=== PATIENT | female | born 1960 | race Caucasian/White ===

== ENCOUNTER 2025-09-18 14:14 | Outpatient (AMB) | payer OTHER, SELFPAY ==
--- OUTSIDE RECORDS SUMMARY | 2025-05-10 06:45 | XMS_ITS ---
Author Organization Rosangela Dowell Address [address] [place] [address] Care Team Providers Care Coal Miner Name Role Phone David Adames Primary Care Provider [phone] David Adames Unavailable Unavailable ALLERGIES No Known Allergies REASON FOR VISIT (IN OFFICE), New Patient MEDICATIONS Medication SIG (Take, Route, Frequency, Duration) Notes Start Date End Date Status Coumadin (1 MG) 1 MG 1 tablet Orally Onc e a day Active Spironolactone 50 MG as directed Orally Active Jardiance 10 MG 1 tablet Orally Once a day Active Carvedilol 3.125 MG 1 tablet with food O rally Twice a day Active Folic Acid 1 MG 1 tablet Orally Once a day for 30 day(s) Active Entresto 24-26 MG 1 tablet Orally Twic e a day Active Atorvastatin Calcium 80 MG 1 tablet Oral ly Once a day Active Aspirin 81 MG 1 tablet Orally Once a day Active SOCIAL HISTORY Tobacco Use: Social History Observation Description Date Details (start date - stop date) Former Smoker NA - 03/27/2025 Sex Assigned At : Social History Observation Description Sex Assigned At Unknown Tobacco Use/Smoking Question Answer Notes Are you a former smoker When did you stop smoking? 03/27/2025 How long has it been since you last smoked? 1-3 months PROBLEMS Problem Type ICD Code Onset Dates Problem Status W/U Status Risk SNOMED Code Notes Problem Mixed hyperlipidemia (E78.2) Active confirmed 570394479 Problem Status post mitral valve replacement (Z95.2) Active confirmed 3562652659381 Problem Congestive heart failure, unspecified (I50.9) Active confirmed 71896445 Problem Paroxysmal a-fib (I48.0) Active confirmed 497164901 Problem COPD, moderate (J44.9) Active confirmed 736732678 VITAL SIGNS Blood pressure systolic 100 mm Hg 05/10/20 25 Blood pressure diastolic 60 mm Hg 025 Heart Rate 60 /min 05/10/2025 Height 65 in 05/10/2025 Weight 175.6 lbs 05/10/2025 BMI 29.22 kg/m2 05/10/2025 Encounters Encounter Location Date Provider Diagnosis Ros[facility] Dowell, [address] [place] [address] 05/10/2025 David Adames Mixed hyperlipidemia E78.2 ; Status post mitral valve replacement Z95.2 ; S/P CABG (coronary artery bypass graft) Z95.1 ; Congestive heart failure, unspecified I50.9 ; LV (acute kidney injury) N17.9 ; Paroxysmal a-fib I48.0 ; COPD, moderate J44.9 ; Encounter for medical examination to establish care Z00.00 and Encounter to establish care Z76.89 ASSESSMENTS Encounter Date Diagnosis Assessment Notes Treatment Notes Treatment Clinical Notes Section Notes 05/10/2025 Mixed hyperlipidemia (ICD-10 - E78.2) 05/10/2025 Status post mitral valve replacement (ICD-10 - Z95.2) 05/10/2025 S/P CABG (coronary artery bypass graft) (ICD-10 - Z95.1) 05/10/2025 Congestive heart failure, unspecified (ICD-10 - I50.9) 05/10/2025 LV (acute kidney injury) (ICD-10 - N17.9) 05/10/2025 Paroxysmal a-fib (ICD-10 - I48.0) 05/10/2025 COPD, moderate (ICD-10 - J44.9) 05/10/2025 Encounter for medical examination to establish care (ICD-10 - Z00.00) 05/10/2025 Encounter to establish care (ICD-10 - Z76.89) 05/10/2025 Other This chart has been transcribed by a computerized dictation system. There are likely to be multiple help desk coordinator inaccuracies despite chart review. PLAN OF TREATMENT Medication Medication Name Sig Start Date Stop Date Notes Coumadin (1 MG) 1 MG 1 tablet Orally Once a day Spironolactone 50 MG as directed Orally Jardiance 10 MG 1 tablet Orally Once a day Carvedilol 3.125 MG 1 tablet with food O rally Twice a day Entresto 24-26 MG 1 tablet Orally Twice a day Atorvastatin Calcium 80 MG 1 tablet Orally Once a day Aspirin 81 MG 1 tablet Orally Once a day Treatment Notes Assessment Notes Other This chart has been transcribed by a computerized dictation system. There are likely to be multiple help desk coordinator inaccuracies despite chart review. Next Appt Details Follow Up: 4 Weeks, Reason: Follow up with Fany Provider Name:Fany Caro i, 10/02/2025 02:45:00 PM, [address] [place] [address], [phone], Progress Notes * Examination Category Sub-Category Detail Notes Category Not es General Examination GENERAL APPEARANCE: in no ac priscilla distress, well developed, well nourished HEAD: normocephalic, atrau matic EYES: pupils equal, round, reactive to light and accommodation THROAT: clear, no erythema, uvula midline, no exudate NECK/THYROID: neck supple, no thyr omegaly, trachea midline, no carotid bruit HEART: no murmurs, regular rate and rhythm, S1, S2 normal LUNGS: clear to auscultatio n bilaterally ABDOMEN: soft, nontender, non distended, no organomegaly , bowel sounds present NEUROLOGIC: alert and oriented x 3, nonfocal SKIN: no suspicious lesion s, warm and dry EXTREMITIES: no clubbing, cyanosi s, or edema PERIPHERAL PULSES: normal, 2+ throughou t MUSCULOSKELETAL: normal, full range o f motion LYMPH NODES: no cervical, axillar y, supraclavicular or inguinal adenopathy PSYCH: cognitive function i ntact, mood/affect full range ORAL CAVITY: mucosa moist, no les ions, palate normal, tongue in midline, well papillated History and Physical Notes * HPI (History of Present Illness) Category Sub-Category Detail Notes Category Not es Symptom(s) 64 year old fem eleazar with a past medical history of mixed hyperlipidemia, coronary artery disease s/p bypass graft x1, heart failure, COPD, mitral reguritation s/p mitral valve replacement, paroxysmal A-fib and former smoker that is here with her to establish care. She recently had open heart surgery and I reviewed her discharge paperwork and current medications. She has her INR checked at the Coumadin clinic currently for dosing of her Warfarin. She tells me that she has upcoming follow ups with cardiology and renal. I have asked her to have them send us copies of their notes. I reviewed her surgical and medical history with her. Her blood pressure is well controlled and she tells me that they monitor it at home. She denies chest pain, palpitations and shortness of breath. I will have her schedule a follow up appointment with us in a month.
--- OUTSIDE RECORDS SUMMARY | 2025-05-20 05:48 | XMS_ITS ---
Author Organization Rosangela Delmer Address [address] [place] [address] Care Team Providers Care Senior Credit Analyst Name Role Phone David Adames Primary Care Provider [phone] David Adames Unavailable Unavailable REASON FOR VISIT Refills and Letter MEDICATIONS Medication SIG (Take, Route, Fr equency, Duration) Notes Start Date End Date Status Folic Acid 1 MG 1 tablet Orally Once a day for 30 day(s) Active Thiamine HCl 100 MG 1 tablet Orally Once a day for 30 day(s) 05/20/2025 Active Encounters Encounter Location Date Provider Diagnosis jorge abutch Delmer [address] [place] [address] 05/20/20 David Adames PLAN OF TREATMENT Medication Medication Name Sig Start Date Stop Date Notes Folic Acid 1 MG 1 tablet Orally Once a day for 30 day(s) Thiamine HCl 100 MG 1 tablet Orally Once a day for 30 day(s) 05/20/2025 Next Appt Details Provider Name:Fany Caro i, 10/02/2025 02:45:00 PM, [address] [place] [address], [phone],
--- OUTSIDE RECORDS SUMMARY | 2025-06-06 06:45 | XMS_ITS ---
Author Organization Rosangela Dowell Address [address] [place] [address] Care Team Providers Care Service Center Specialist Name Role Phone David Adames Primary Care Provider [phone] David Adames Unavailable Unavailable REASON FOR REFERRAL Reason Consultation Diagnosis 1 Rectocele, female (N 81.6) Referral Organization David Adames [facility] Referring Provider First Name David Referring Provider Last Name Rosangela Referring Provider Speciality Internal M edicine Referred Provider Specialty Gynecology ( Osteopaths only) General Notes Jojo Jules 08/2025 02:14:54 PM EDT > Faxed to General surgery, which has colorectal sugery as [facility], Jojo Jules 06/07/2025 08:30:17 AM EDT > PT is scheduled with Kierra Ramirez on 06/20, Korin Goetz 06/11/2025 11:12:02 AM EDT > They don't take her inurance. She needs to go somewhere else. Dhara Kalise 06/11/2025 11:25:54 AM EDT > Faxed to [facility] referral line , Jojo Jules 06/20/2025 10:53:03 AM EDT > Went to the wrong department needed to refax the referral.Dhara Kalise 06/20/2025 01:46:01 PM EDT > [facility] doesn't have a colorectal surgeon going to call [facility] and see if they are accepting new pts. [facility] doesn't see for this either. Dhara Kalise 06/20/2025 01:52:51 PM EDT > Left VM for [facility] to see if there is anyway to get them in and if they take the plan. Dhara Kalise 06/21/2025 09:41:53 AM EDT > [facility] is accepting new pts and i faxed over the referral., BrindaMerlene lackey 06/24/2025 02:17:43 PM EDT > [facility] don't treat for that dx , Jojo Jules 06/28/2025 11:15:30 AM EDT > Is there another Dx we could use? Everywhere rene looked either doesnt take this Dx or her insurance , Jennifer Mullen 06/28/2025 11:19:33 AM EDT > Try sending her to a urogynecologist see if they accept the DX , Jojo Jules 06/28/2025 03:28:48 PM EDT > the only place that would take her insurance is [facility] in [place]. Called pt to let her know she is going to think about it and let us know tuesday. , Jojo Jules 07/03/2025 08:31:12 AM EDT > No [facility] takes this Dx code. , Jennifer Mullen 07/03/2025 08:47:50 AM EDT > please get patient in with regular Gynecology first at [facility] and they can take it from there. , Jojo Jules 07/03/2025 08:50:15 AM EDT > Faxed to [facility] , Jojo Jules 07/03/2025 10:45:08 AM EDT > [facility] is not taking on new pts at the moment , Jojo Jules 07/05/2025 03:22:30 PM EDT > On tuesday let her know if she really wants this taken care of she is going to have to travel to the [place]. or in the new year join a plan that is more accepted and then we can try again. , Jojo Jules 07/09/2025 04:23:13 PM EDT > PT is not willing to travel and will try again next year. Clinical Notes [facility] - Juliano huston , PH: [phone], F: [phone] Referral Priority Urgent REASON FOR VISIT (IN OFFICE), Follow Up, Sick visit- hemorrhoids MEDICATIONS Medication SIG (Take, Route, Frequency, Duration) Notes Start Date End Date Status Hydrocortisone Acetate 25 MG 1 supposito ry Rectal Twice a day for 30 day(s) 06/06/2025 Active Aspirin 81 MG 1 tablet Orally Once a day Active Atorvastatin Calcium 80 MG 1 tablet Oral ly Once a day Active Entresto 24-26 MG 1 tablet Orally Twic e a day Active Carvedilol 3.125 MG 1 tablet with food Orally Twice a day Active Folic Acid 1 MG TAKE 1 TABLET BY CHIN TH EVERY DAY FOR 30 DAYS for 90 Active B-1 100 MG TAKE 1 TABLET BY CHIN TH EVERY DAY FOR 30 DAYS for 90 Active Spironolactone 25 MG 1 tablet Orally Active Metoprolol Succinate ER 25 MG TAKE 1 TABLET BY MOUTH EVERY DAY Oral for 90 Active Jardiance 10 MG 1 tablet Orally Once a day Active Coumadin (1 MG) 1 MG 1 tablet Orally Onc e a day Active SOCIAL HISTORY Tobacco Use: [...] W/U Status Risk SNOMED Code Notes Problem Grade I hemorrhoids (K64.0) Active confirmed 279223754 Problem Rectocele, female (N81.6) Active confirmed 752609820 VITAL SIGNS Blood pressure systolic 116 mm Hg 06/06/20 25 Blood pressure diastolic 78 mm Hg 025 Heart Rate 84 /min 06/06/2025 Height 65 in 06/06/2025 Weight 176.4 lbs 06/06/2025 BMI 29.35 kg/m2 06/06/2025 PROCEDURES Procedure Date Ordered Date Performed Result Body Sit e DIAGNOSTIC ANOSCOPY 06/06/2025 N/A Encounters Encounter Location Date Provider Diagnosis [facility] [address] [place] [phone] 06/06/2025 David Adames Status post mitral v alve replacement Z95.2 ; Congestive heart failure, unspecified I50.9 ; Paroxysmal a-fib I48.0 ; Mixed hyperlipidemia E78.2 ; S/P CABG (coronary artery bypass graft) Z95.1 ; LV (acute kidney injury) N17.9 ; COPD, moderate J44.9 ; Grade I hemorrhoids K64.0 and Rectocele, female N81.6 ASSESSMENTS Encounter Date Diagnosis Assessment Notes Treatment Notes Treatment Clinical Notes Section Notes 06/06/2025 Status post mitral valve replacement (ICD-10 - Z95.2) 06/06/2025 Congestive heart failure, unspecified (ICD-10 - I50.9) 06/06/2025 Paroxysmal a-fib (ICD-10 - I48.0) 06/06/2025 Mixed hyperlipidemia (ICD-10 - E78.2) 06/06/2025 S/P CABG (coronary artery bypass graft) (ICD-10 - Z95.1) 06/06/2025 VL (acute kidney injury) (ICD-10 - N17.9) 06/06/2025 COPD, moderate (ICD-10 - J44.9) 06/06/2025 Grade I hemorrhoids (ICD-10 - K64.0) 06/06/2025 Rectocele, female (ICD-10 - N81.6) 06/06/2025 Other This chart has been transcribed by a computerized dictation system. There are likely to be multiple transportation mechanic inaccuracies despite chart review. PLAN OF TREATMENT Medication Medication Name Sig Start Date Stop Date Notes Hydrocortisone Acetate 25 MG 1 supposito ry Rectal Twice a day for 30 day(s) 06/06/2025 Aspirin 81 MG 1 tablet Orally Once a day Atorvastatin Calcium 80 MG 1 tablet Orally Once a day Entresto 24-26 MG 1 tablet Orally Twice a day Carvedilol 3.125 MG 1 tablet with food O rally Twice a day Spironolactone 25 MG 1 tablet Orally Jardiance 10 MG 1 tablet Orally Once a day Coumadin (1 MG) 1 MG 1 tablet Orally Once a day Treatment Notes Assessment Notes Other This chart has been transcribed by a computerized dictation system. There are likely to be multiple transportation mechanic inaccuracies despite chart review. Pending Test Test Name Order Date GUAIAC, SINGLE SPECIMEN 06/06/2025 DIAGNOSTIC ANOSCOPY 06/06/2025 Referrals Referral Date Details Consultation Next Appt Details Follow Up: 4 Weeks, Reason: Annual physical with Fany Provider Name:Fany Caro i, 10/02/2025 02:45:00 PM, [address] [place] [address], [phone], Progress Notes * Examination Category Sub-Category Detail Notes Category Not es General Examination GENERAL APPEARANCE: in no ac te-moak distress, well developed, well nourished HEAD: normocephalic, [...] cervical, axillar y, supraclavicular or inguinal adenopathy RECTAL EXAM: Grade 1 hemorrhoids present, no fissures PSYCH: cognitive function i ntact, mood/affect full range FEMALE GENITOURINARY: Rectocele present ORAL CAVITY: mucosa moist, no les ions, [...] A-fib and former smoker that is here for follow up, accompanied by her . Since last visit patient has seen her slat pickler who stopped her carvedilol and started her on metoprolol XL 25 mg daily due to tachycardia. She will follow up again with them in July I reviewed all available consultation notes. Patient also continues to follow up with nephrology for an LV after CABG. Patient had lab work drawn this week but unfortunately I do not have record of this. Our office will try to obtain these records. Patient's blood pressure is well controlled with current medications. She continues to take atorvastatin without any adverse reaction. She denies chest pain, palpitations, or shortness of breath. Patient complains of hemorrhoids for 7 years. She tells me that her rectum protrudes from her vagina. An anoscopy was performed which revealed grade 1 hemorrhoids and patient was found to have a rectocele. She tells me that protrudes if she is standing for more than 5 minutes. I will start patient on hydrocortisone suppositories twice a day and refer her to colorectal surgery. I advised patient to drink plenty of fluids to prevent constipation. Consultation Request Notes Referral Date Referring Provider Referred Provider Not 06/06/2025 David Adames , Consultation
--- OUTSIDE RECORDS SUMMARY | 2025-06-06 08:31 | XMS_ITS ---
Author Organization Emilybutch Delmer Address [address] [place] [address] Care Team Providers Care Manager Appointment Name Role Phone David Adames Primary Care Provider [phone] David Adames Unavailable Unavailable Liberty [facility] [phone] REASON FOR VISIT Labs Encounters Encounter Location Date Provider Diagnosis [facility] Delmer [address] [place] [address] 06/06/20 25 Liberty Barksdale PLAN OF TREATMENT Next Appt Details Provider Name:Fany Caro i, 10/02/2025 02:45:00 PM, [address] [place] [address], [phone],
--- OUTSIDE RECORDS SUMMARY | 2025-06-07 11:03 | XMS_ITS ---
Author Organization Rosangela Dowell Address [address] [place] [address] Care Team Providers Care Design Eng Name Role Phone David Adames Primary Care Provider David Adames Unavailable Unavailable REASON FOR VISIT Alternative Encounters Encounter Location Date Provider Diagnosis Rosangela Dowell [address] [place] [address] 06/07/20 David Adames PLAN OF TREATMENT Next Appt Details Provider Name:Fany Caro i, 10/02/2025 02:45:00 PM, [address] [place] [address], [phone],
--- OUTSIDE RECORDS SUMMARY | 2025-06-11 07:10 | XMS_ITS ---
Author Organization Rosangela Dowell Address [address] [place] [address] Care Team Providers Care Padding Machine Operator Name Role Phone David Adames Primary Care Provider David Adames Unavailable Unavailable REASON FOR VISIT Message MEDICATIONS Medication SIG (Take, Route, Frequency, Duration) Notes Start Date End Date Status Hydrocortisone (Perianal) 2.5 % 1 application Externally Twice a day for 30 days 06/11/2025 Active Encounters Encounter Location Date Provider Diagnosis jorge [address] [address] 06/11/20 David Adames PLAN OF TREATMENT Medication Medication Name Sig Start Date Stop Date Notes Hydrocortisone (Perianal) 2.5 % 1 applic ation Externally Twice a day for 30 days 06/11/2025 Next Appt Details Provider Name:Fany Caro i, 10/02/2025 02:45:00 PM, [address] [place] [address], [phone],
--- OUTSIDE RECORDS SUMMARY | 2025-07-02 10:30 | XMS_ITS ---
Author Organization Rosangela Dowell Address [address] [place] [address] Care Team Providers Care Real Estate Acquisition Analyst Name Role Phone David Adames Primary Care Provider [phone] David Adames Unavailable Unavailable REASON FOR VISIT (IN OFFICE), Annual Complete Physical Exam MEDICATIONS Medication SIG (Take, Route, Frequency, Duration) Notes Start Date End Date Status Spironolactone 25 MG 1/2 tablet Orally O nce a day Active Metoprolol Succinate ER 25 MG TAKE 1 TABLET BY MOUTH EVERY DAY Oral for 90 Active Hydrocortisone (Perianal) 2.5 % 1 application Externally Twice a day for 30 days 06/11/2025 Active Jardiance 10 MG 1 tablet Orally Once a day Active Folic Acid 1 MG TAKE 1 TABLET BY CHIN TH EVERY DAY FOR 30 DAYS for 90 Active Coumadin (1 MG) 1 MG 1 tablet Orally Onc e a day Active Aspirin 81 MG 1 tablet Orally Once a day Active Hydrocortisone Acetate 25 MG 1 supposito ry Rectal Twice a day for 30 day(s) 06/06/2025 Active Valsartan 40 MG 1 tablet Orally Twic e a day for 30 day(s) Active Atorvastatin Calcium 80 MG 1 tablet Oral ly Once a day Active SOCIAL HISTORY Tobacco Use: Social History Observation Description Date Details (start date - stop date) Former Smoker NA - 03/27/2025 Sex Assigned At : Social History Observation Description Sex Assigned At Unknown Tobacco Use/Smoking Question Answer Notes Are you a former smoker When did you stop smoking? 03/27/2025 How long has it been since you last smoked? 1-3 months VITAL SIGNS Blood pressure systolic 140 mm Hg 07/02/20 25 Blood pressure diastolic 84 mm Hg 025 Heart Rate 80 /min 07/02/2025 Height 65 in 07/02/2025 Weight 174.6 lbs 07/02/2025 BMI 29.05 kg/m2 07/02/2025 Encounters Encounter Location Date Provider Diagnosis [facility], [address] [place] [address] 07/02/2025 David Rosangela Annual physical exam Z00.00 ; Mixed hyperlipidemia E78.2 and Congestive heart failure, unspecified I50.9 ASSESSMENTS Encounter Date Diagnosis Assessment Notes Treatment Notes Treatment Clinical Notes Section Notes 07/02/2025 Annual physical exam (ICD-10 - Z00.00) 07/02/2025 Mixed hyperlipidemia (ICD-10 - E78.2) 07/02/2025 Congestive heart failure, unspecified (ICD-10 - I50.9) 07/02/2025 Other This chart has been transcribed by a computerized dictation system. There are likely to be multiple tear down worker inaccuracies despite chart review. PLAN OF TREATMENT Treatment Notes Assessment Notes Other This chart has been transcribed by a computerized dictation system. There are likely to be multiple tear down worker inaccuracies despite chart review. Pending Test Test Name Order Date LP+Non-HDL [id number] 07/02/2025 Hepatic Function Panel [id number] 2024 Comp. Metabolic Panel [id number] 2024 [id number] 07/02/2025 Next Appt Details Follow Up: 3 Months, Reason: Follow up with Fany Provider Name:Fany Caro i, 10/02/2025 02:45:00 PM, [address] [place] [address], [phone], Progress Notes * Examination Category Sub-Category Detail Notes Category Not es General Examination GENERAL APPEARANCE: in no ac priscilla distress, well developed, well nourished HEAD: normocephalic, atrau matic EYES: pupils equal, round, reactive to light and accommodation EARS: normal, auditory can al clear, tympanic membrane intact, clear NOSE: nares patent, no les ions, septum intact, clear discharge THROAT: clear, no erythema, uvula midline, no exudate NECK/THYROID: neck supple, trachea midline, no thyromegaly, no carotid bruit HEART: no murmurs, regular rate and rhythm, S1, S2 normal LUNGS: clear to auscultatio n bilaterally ABDOMEN: soft, nontender, non distended, no organomegaly , bowel sounds present NEUROLOGIC: alert and oriented x 3, normal strength, tone and reflexes, sensory exam intact SKIN: no suspicious lesion s, warm and [...] and former smoker that is here for her annual physical. She is compliant with all her medications without side effects. Medication list reconciled with changes from her financial accounting analyst. She brought in her list of blood pressures from home which were all in acceptable range. I calibrated her machine which was systolically 20 points higher and diastolically 10 points higher than the manual. I reviewed her lab work uploaded into the system from 06/03/25 which were all in acceptable range. She tells me that she needs a colonoscopy but would like to be evaluated by colorectal surgery for her rectocele first. I ordered appropriate lab work prior to her next visit.
--- OUTSIDE RECORDS SUMMARY | 2025-09-03 10:30 | XMS_ITS ---
Author Organization [facility]angela [facility]ell Address [address] [place] [address] Care Team Providers Care Veteran Appeals Reviewer Name Role Phone David Adames Primary Care Provider [phone] David Adames Unavailable Unavailable REASON FOR REFERRAL Reason Consultation - APPT REQUEST & SUPPORTING DOCS Diagnosis 1 TIA (transient ische nia attack) (G45.9) Referral Organization [facility] Referring Provider First Name David Referring Provider Last Name Rosangela Referring Provider Speciality Internal M edicine Referred Provider Specialty Neurology General Notes Consultation and f/u of recent ER visit for concern of TIA and MRI results 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 Patient would prefer [facility] facilities., Jojo Jules 09/10/2025 08:23:22 AM EDT > Per [facility] We are not contracted with pts insurance, Please send somewhere else , Jennifer Mullen 09/10/2025 08:31:40 AM EDT > paperwork sent to [facility] Caitlyn R 09/16/2025 09:45:22 AM > Patient called looking for an update, Jennifer Mullen 09/17/2025 10:58:17 AM EDT > resubmitted to [facility] Clinical Notes [facility] , Referral Priority Routine REASON FOR VISIT (IN OFFICE), Sick Visit - elevated BP, Follow up - recent hospitalization MEDICATIONS Medication SIG (Take, Route, Frequency, Duration) Notes Start Date End Date Status Hydrocortisone (Perianal) 2.5 % 1 application Externally Twice a day for 30 days 06/11/2025 Active Valsartan 40 MG 1 tablet Orally Twic e a day Active B-1 100 MG TAKE 1 TABLET BY CHIN EVERY DAY FOR 30 DAYS for 90 Active Metoprolol Succinate ER 100 MG TAKE 1 TABLET BY MOUTH EVERY DAY Orally Active Atorvastatin Calcium 80 MG 1 tablet Oral ly Once a day Active Folic Acid 1 MG TAKE 1 TABLET BY CHIN TH EVERY DAY FOR 30 DAYS for 90 Active Spironolactone 25 MG 1/2 tablet Orally O nce a day Active Jardiance 10 MG 1 tablet Orally Once a day Active Coumadin (1 MG) 1 MG 1 tablet Orally Onc e a day Active Hydrocortisone Acetate 25 MG 1 supposito ry Rectal Twice a day for 30 day(s) 06/06/2025 Active Aspirin 81 MG 1 tablet Orally Once a day Active IMMUNIZATIONS Vaccine Route Administration Date Status Comme nts * FLUARIX TIV PFS IM Intramuscular 09/03/2025 Administered SOCIAL HISTORY Tobacco Use: Social History Observation [...] W/U Status Risk SNOMED Code Notes Problem TIA (transient ischemic attack) (G45.9) Active confirmed 625832623 Problem Essential hypertension (I10) Active confirmed 38841025 VITAL SIGNS Blood pressure systolic 152 mm Hg 09/03/20 25 Blood pressure diastolic 84 mm Hg 025 Heart Rate 85 /min 09/03/2025 Height 65 in 09/03/2025 Weight 175.0 lbs 09/03/2025 BMI 29.12 kg/m2 09/03/2025 Encounters Encounter Location Date Provider Diagnosis [address] [address] 09/03/2025 David Adames TIA (transient ische nia attack) G45.9 ; Essential hypertension I10 and Encounter for immunization Z23 ASSESSMENTS Encounter Date Diagnosis Assessment Notes Treatment Notes Treatment Clinical Notes Section Notes 09/03/2025 TIA (transient ischemic attack) (ICD-10 - G45.9) 09/03/2025 Essential hypertension (ICD-10 - I10) 09/03/2025 Encounter for immunization (ICD-10 - Z23) 09/03/2025 Other This chart has been transcribed by a computerized dictation system. There are likely to be multiple bid clerk inaccuracies despite chart review. PLAN OF TREATMENT Medication Medication Name Sig Start Date Stop Date Notes Valsartan 40 MG 1 tablet Orally Twice a day Metoprolol Succinate ER 100 MG TAKE 1 TA BLET BY MOUTH EVERY DAY Orally Treatment Notes Assessment Notes Other This chart has been transcribed by a computerized dictation system. There are likely to be multiple bid clerk inaccuracies despite chart review. Referrals Referral Date Details Consultation - APPT REQUEST & SUPPORTING DOCS Next Appt Details Follow Up: as scheduled, Jane son: Provider Name:Fany Caro i, 10/02/2025 02:45:00 PM, [address] [place] [address], [id number], Progress Notes * Examination Category Sub-Category Detail Notes Category Not es General Examination GENERAL APPEARANCE: in no ac little river distress, well developed, well nourished HEAD: normocephalic, [...] present NEUROLOGIC: alert and oriented x 3, nonfocal, gait normal, normal strength, tone and reflexes SKIN: no suspicious lesion s, warm and dry EXTREMITIES: no clubbing, cyanosi s, or edema PERIPHERAL PULSES: normal, 2+ throughou t MUSCULOSKELETAL: normal, full range o f motion LYMPH NODES: no cervical, axillar y, supraclavicular or inguinal adenopathy RECTAL EXAM: PSYCH: cognitive function i ntact, mood/affect full range FEMALE GENITOURINARY: ORAL CAVITY: mucosa moist, no les ions, [...] valve replacement, paroxysmal A-fib and former smoker is here with concerns about elevated blood pressure. She has been monitoring it at home and it has been in the 140-180s/80-90s. She tells me that she had a recent ER visit on 08/27/25 with vision changes that were concerning for a stroke. I have reviewed available documentation from her ER visit. 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 Her other diagnostic tests were negative. She signed her self out AMA the next day. She continues to follow with cardiology and they have recently increased her Metoprolol to 50mg daily. Since she continued to have elevated BPs, they increased it further to 100mg daily. She took her first dose of 100mg last evening and her BP at home was elevated all morning. Her hogshead dumper advised her to come have it taken in office. Her blood pressure is elevated at today's visit. She tells me she is following up with the cardiology office for further instructions on her medications after this visit. I have asked that office notes from cardiology be sent to our office. I encouraged her to follow cardiology's recommendations. I strongly encouraged her to see an eye MD to be evaluated for her vision symptoms that sound like ocular migraines or TIAs. She also tells me she needs a referral to a neurologist to be further worked up for TIAs. Her other chronic conditions are well controlled on current medications without side effect. She denies chest pain, palpitations and shortness of breath. She received a flu shot during today's visit. Consultation Request Notes Referral Date Referring Provider Referred Provider Not katherine 09/03/2025 David Adames , Consultation - APPT REQUEST & SUPPORTING DOCS
[2025-09-18 14:21] VITALS: BP 142/67; PULSE 86; O2SAT 97; BMI 28.5
--- NOTE | 2025-09-18 14:21 | MHC.OFFVIS ---
Vital Signs 09/18/25 14:21 Height 5 ft 7 in Weight 182 lb BMI 28.5 BP 142/67 H Blood Pressure Location Lt brachial Position Sitting Pulse 86 Pulse Oximetry (%) 97 Oxygen Delivery Method Room Air Intake Visit Reasons: Rectosele Intake Note: Patient new consult for Rectosele Patient cc: constipation on and off. Hx of hemorrhoids. Denies any other GI issues. Gymnastic Coach Required: No Accompanied by: Family/Other Allergies No Known Allergies Allergy (Verified 09/18/25 14:21) HPI HPI Rectosele: Details: Patient is a 64-year-old female with PMH of CHF, A-fib, vavle replacement bypass 03/28/2025. Referred by PCP for further evaluation of rectocele. Patient is accompanied by partner. Laurel presents with a history of rectocele and rectal prolapse, first noticed in 2016 after experiencing constipation and straining resulting in a pop sensation while defecating. Initially mild, the prolapse has progressively worsened over the last 7?8 years and is now persistently present near the vaginal introitus, associated with discomfort, especially when standing or on her feet for extended periods. She describes daily bowel movements, but often requires two trips in the morning to achieve relief, attributing incomplete emptying to the prolapse. Hemorrhoids intermittently descend and cause discomfort, but only mild, non-painful rectal bleeding occurs, typically during episodes of constipation and noted with wiping. Over the past few months, she has adjusted her diet?hydration, fruits (raisins, kiwi, orange juice)?to minimize constipation, with some success. She occasionally uses stool softeners or stimulant laxatives episodically (every couple of weeks) and previously found polyethylene glycol (PEG) effective during post-op periods. Mild episodic heartburn with acidic foods, self-limited, no regular medications for symptoms due to cardiovascular meds. Relevant comorbidities include recent open heart surgery (valve replacement and CABG in March 2025), chronic anticoagulation (Eliquis; previously warfarin), hypertension, and regular nephrology care. Family history notable for similar pelvic support pathology in mother and sister. Patient denies: fever/chills, n/v, appetite changes, regurgitation,dysphasia, unintentional wt loss, ab pain. [facility] Medical History (Updated 09/19/25 @ 13:03 by Allyson Coreas CNP) Colon cancer screening declined Hemorrhoid Rectocele Blood in stool Surgical History Hx of appendectomy Hx of mitral valve replacement Family History Father Alcoholism Lung cancer Mother Asthma Arthritis Osteoporosis Dementia Heart disease Migraine Social History Household Members: Family Alcohol intake: never Patient Tobacco Use Status: Never used Tobacco Review of Systems Const Reports as per HPI ENT Reports as per HPI Card Reports as per HPI Resp Reports as per HPI GI Reports as per HPI Reports as per HPI Physical Exam Vital Signs: Last Vital Signs Pulse 86 09/18/25 14:21 BP 142/67 H 09/18/25 14:21 Pulse Ox 97 09/18/25 14:21 Oxygen Delivery Method Room Air 09/18/25 14:21 BMI result Body Mass Index 28.5 Const General: healthy appearing, no acute distress and well developed Nutritional Appearance: average body habitus Orientation/consciousness: patient oriented x3 HEENT Head: Yes normal to inspection, Yes normocephalic and Yes atraumatic Face and sinus: Yes normal facial exam Eyes General: appearance normal, both eyes and all related structures Neck Neck: Yes normal visual inspection Resp Effort & Inspection: normal respiratory effort, able to speak in complete sentences, no tracheal deviation and symmetric chest movement Cardio Jugular venous distension: no JVD GI Other: On exam, external hemorrhoid and skin tag, no fissure, prolapse palpable into posterior vagina on Valsalva maneuver; no active bleeding; no obvious anal fissures Inspection: Yes normal to inspection, No distended and Yes obesity Palpation (GI): Soft to palpation, not firm, nontender and No hepatosplenomegaly present Auscultation: normal bowel sounds Rectal Exam - Female: decreased sphincter tone, External hemorrhoid(s) present, No Laceration(s) present (GI), No Excoriation present (GI), No mass, No tenderness and other (see above) Neuro General: patient oriented x3 Gait exam (Neuro): Normal gait present Psych Appearance: grossly normal Mental Status: mental status grossly normal Speech and movement: Normal speech and movement present Affect: normal affect Attitude: cooperative Thought process: Normal thought process present Thought content: Normal thought content present Insight: Good insight present (Psych) Judgement: Good judgement present (Psych) Assessment & Plan Assessment & Plan (1) Rectocele: Code(s): N81.6 - Rectocele Category: Medical Plan: Multiple year hx of rectal bulge; confirmed by exam; significant functional impact; extension into vagina Additional Testing: - Routine labs including Hb/Hct to r/o anemia (due to bleeding hx), can be coordinated with PCP's planned bloodwork - No colorectal CA screening at this time per patient preference Medication Management: - Continue stool softeners as needed; avoid regular stimulant laxatives - Recommend polyethylene glycol as preferred osmotic laxative if needed Lifestyle Recommendations: - Maintain high fiber/fluid intake; minimize straining; continue current preventative strategies - Recommend pelvic floor PT?referral discussed. Patient to coordinate closer to home via PCP office Referral:Urogynecology for surgical evaluation as rectocele/prolapse extends into vagina; [facility] likely destination depending on insurance approval Follow-Up: - 8 weeks with GI for reassessment; earlier if worsening or unable to connect with surgical subspecialty (2) Hemorrhoid: Code(s): K64.9 - Unspecified hemorrhoids Category: Medical Qualifiers: Hemorrhoid type: residual hemorrhoidal skin tags Qualified Code(s): K64.4 - Residual hemorrhoidal skin tags Plan: Symptomatic, visible on exam; intermittent bleeding consistent with episodic constipation Additional Testing: - None beyond above labs unless increase in bleeding/anemia concern Medication Management: - Episodic use of OTC topical agents and stool softeners as needed; avoid regular stimulant laxatives Lifestyle Recommendations: - Continue optimized bowel regimen, avoid straining, sitz baths PRN for comfort Follow-Up: - As above; emphasize that increased or persistent bleeding warrants earlier evaluation (3) Colon cancer screening declined: Code(s): Z53.20 - Procedure and treatment not carried out because of patient's decision for unspecified reasons Category: Medical Plan: Age-appropriate, no prior CRC screening; increased risk due to age and chronic GI symptoms Additional Testing: - CRC screening deferred at this time per patient preference; no stool-based or colonoscopic testing performed Medication Management: - N/A Lifestyle Recommendations: - Revisit CRC screening at next visit or via PCP; patient aware of importance and options (including stool based) Follow-Up: - Readdress CRC screening at 8-week follow-up or sooner if patient elects Plan Follow-up in 8 weeks or sooner as needed Time: I spent a total of 45 minutes on the date of encounter which includes: Preparing to see the patient (reviewed previous documentation, test results and medical history) Performing a medically appropriate exam and/or evaluation Ordering medications, tests, and procedures Documenting clinical information in the health record Orders: Orders Complete Blood Count no Diff 09/18/25 K92.1 - Melena Referrals Urogynecology Referral K92.1 - Melena, N81.6 - Rectocele Coding Level of Care Code New Pt Est Pt Level 4 (81460) Patient Type New Diagnoses Rectocele N81.6 Residual hemorrhoidal skin tags K64.4 Hemorrhoid type: residual hemorrhoidal skin tags Colon cancer screening declined Z53.20
--- OUTSIDE RECORDS SUMMARY | 2025-09-18 20:29 | XMS_ITS | Patient Health Record ---
Author Organization Rosangela Dowell Address [address] [place] [address] Care Team Providers Care Manufacturing Executive Name Role Phone David Adames Primary Care Provider David Adames Unavailable Unavailable Liberty Barksdale Unavailable [phone] ALLERGIES No Known Allergies REASON FOR REFERRAL Reason Consultation Diagnosis 1 [...] inurance. She needs to go somewhere else. , Jojo Jules 06/11/2025 11:25:54 AM EDT > Faxed to [facility] referral line , Jojo Jules 06/20/2025 10:53:03 AM EDT > Went to the wrong department needed to refax the referral.Dhara Kalise 06/20/2025 01:46:01 PM EDT > [facility] doesn't have a colorectal surgeon going to call [facility] and see if they are accepting new pts. [facility] doesn't see for this either. Dhara Kalise 06/20/2025 01:52:51 PM EDT > Left VM for [facility] to see if there is anyway to get them in and if they take the plan. , Jojo Jules 06/21/2025 09:41:53 AM EDT > [facility] is accepting new pts and i faxed over the referral., Merlene Parry 06/24/2025 02:17:43 PM EDT > [facility] don't treat for that dx , Jojo [...] place that would take her insurance is [facility] in [place]. Called pt to let her know she is going to think about it and let us know tuesday. , Jojo Jules 07/03/2025 08:31:12 AM EDT > No [facility] takes this Dx code. , Jennifer Mullen 07/03/2025 08:47:50 AM EDT > please get patient in with regular Gynecology first at [facility] and they can take it from there. , Jojo Jules 07/03/2025 08:50:15 AM EDT > Faxed to [facility] , Jojo Jules 07/03/2025 10:45:08 AM EDT > [facility] is not taking on new pts at the moment , Jojo Jules 07/05/2025 03:22:30 PM EDT > On tuesday let her know if she really wants this taken care of she is going to have to travel to the [place] area. or in the new year join a plan that is more accepted and then we can try again. , Jojo Jules 07/09/2025 04:23:13 PM EDT > PT is not willing to travel and will try again next year. Clinical Notes [facility] - Juliano huston , PH: [phone], F: [phone] Referral Priority Urgent Reason Consultation - APPT REQUEST & SUPPORTING DOCS Diagnosis 1 TIA (transient ische nia attack) (G45.9) Referral Organization David Adames Md Referring Provider First Name David Referring Provider Last Name Rosangela Referring Provider Speciality Internal M edicine Referred Provider Specialty Neurology General Notes Consultation and f/u of recent ER visit for concern of TIA and MRI results 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 Patient would prefer [facility] facilities. Jojo Jules 09/10/2025 08:23:22 AM EDT > Per [facility] We are not contracted with pts insurance, Please send somewhere else , Jennifer Mullen 09/10/2025 08:31:40 AM EDT > paperwork sent to [facility] Caitlyn R 09/16/2025 09:45:22 AM > Patient called looking for an update, Fred HICKSKushJennifer 09/17/2025 10:58:17 AM EDT > resubmitted to [facility] Clinical Notes [facility], [phone], Referral Priority Routine MEDICATIONS Medication SIG (Take, Route, Frequency, Duration) Notes Start Date End Date Status Folic Acid 1 MG TAKE 1 TABLET BY CHIN TH EVERY DAY FOR 30 DAYS for 90 Active Spironolactone 25 MG 1/2 tablet Orally O nce a day Active Jardiance 10 MG 1 tablet Orally Once a day Active Hydrocortisone (Perianal) 2.5 % 1 application [...] a day for 30 day(s) 06/06/2025 Active IMMUNIZATIONS Vaccine Route Administration Date Status [...] TIA (transient ischemic attack) (G45.9) Active confirmed 049252777 Problem Paroxysmal a-fib (I48.0) Active confirmed 106669214 Problem Mixed hyperlipidemia (E78.2) Active confirmed 837482789 Problem Essential hypertension (I10) Active confirmed 98831951 Problem Congestive heart failure, unspecified (I50.9) Active confirmed 10940979 Problem Grade I hemorrhoids (K64.0) Active confirmed 485921714 Problem Status post mitral valve replacement (Z95.2) Active confirmed 2280710890878 Problem COPD, moderate (J44.9) Active confirmed 789853215 Problem Rectocele, female (N81.6) Active confirmed 429369334 VITAL SIGNS Heart Rate 85 /min 09/03/2025 Blood pressure diastolic 84 mm Hg 09/03/2025 Height 65 in 09/03/2025 Blood pressure systolic 152 mm Hg 09/03/2025 Weight 175.0 lbs 09/03/2025 BMI 29.12 kg/m2 09/03/2025 PROCEDURES Procedure Date Ordered Date Performed Result Body Sit e DIAGNOSTIC ANOSCOPY 06/06/2025 N/A Encounters Encounter Location Date Provider Diagnosis jorge [address] [address] 05/10/2025 David Adames Mixed hyperlipidemia E78.2 ; Status post mitral valve replacement Z95.2 ; S/P CABG (coronary artery bypass graft) Z95.1 ; Congestive heart failure, unspecified I50.9 ; LV (acute kidney injury) N17.9 ; Paroxysmal a-fib I48.0 ; COPD, moderate J44.9 ; Encounter for medical examination to establish care Z00.00 and Encounter to establish care Z76.[address] [address] 05/20/2025 David Adames [address] [address] 06/06/2025 David Adames Status post mitral v alve replacement Z95.2 ; Congestive heart failure, unspecified I50.9 ; Paroxysmal a-fib I48.0 ; Mixed hyperlipidemia E78.2 ; S/P CABG (coronary artery bypass graft) Z95.1 ; LV (acute kidney injury) N17.9 ; COPD, moderate J44.9 ; Grade I hemorrhoids K64.0 and Rectocele, female N81.[address] [address] 06/06/2025 Liberty Barksdale [facility], [address] [address] 06/07/[address] [address] 06/11/[address] [address] 07/02/2025 David Adames Annual physical exam Z00.00 ; Mixed hyperlipidemia E78.2 and Congestive heart failure, unspecified I50.[address] [address] 09/03/2025 David Adames TIA (transient ische nia attack) G45.9 ; Essential hypertension I10 and Encounter for immunization Z23 ASSESSMENTS Encounter Date Diagnosis Assessment Notes Treatment Notes Treatment Clinical Notes Section Notes 09/03/2025 TIA (transient ischemic attack) (ICD-10 - G45.9) 09/03/2025 Essential hypertension (ICD-10 - I10) 07/02/2025 Annual physical exam (ICD-10 - Z00.00) 07/02/2025 Mixed hyperlipidemia (ICD-10 - E78.2) 05/10/2025 Mixed hyperlipidemia (ICD-10 - E78.2) 05/10/2025 Status post mitral valve replacement (ICD-10 - Z95.2) 06/06/2025 Congestive heart failure, unspecified (ICD-10 - I50.9) 06/06/2025 Status post mitral valve replacement (ICD-10 - Z95.2) 09/03/2025 Encounter for immunization (ICD-10 - Z23) 07/02/2025 Congestive heart failure, unspecified (ICD-10 - I50.9) 05/10/2025 S/P CABG (coronary artery bypass graft) (ICD-10 - Z95.1) 06/06/2025 Paroxysmal a-fib (ICD-10 - I48.0) 05/10/2025 Congestive heart failure, unspecified (ICD-10 - I50.9) 06/06/2025 Mixed hyperlipidemia (ICD-10 - E78.2) 05/10/2025 LV (acute kidney injury) (ICD-10 - N17.9) 06/06/2025 S/P CABG (coronary artery bypass graft) (ICD-10 - Z95.1) 05/10/2025 Paroxysmal a-fib (ICD-10 - I48.0) 06/06/2025 LV (acute kidney injury) (ICD-10 - N17.9) 05/10/2025 COPD, moderate (ICD-10 - J44.9) 06/06/2025 COPD, moderate (ICD-10 - J44.9) 05/10/2025 Encounter for medical examination to establish care (ICD-10 - Z00.00) 06/06/2025 Grade I hemorrhoids (ICD-10 - K64.0) 05/10/2025 Encounter to establish care (ICD-10 - Z76.89) 06/06/2025 Rectocele, female (ICD-10 - N81.6) 06/06/2025 Other This chart has been transcribed by a computerized dictation system. There are likely to be multiple outbound sales specialist inaccuracies despite chart review. 07/02/2025 Other This chart has been transcribed by a computerized dictation system. There are likely to be multiple outbound sales specialist inaccuracies despite chart review. 09/03/2025 Other This chart has been transcribed by a computerized dictation system. There are likely to be multiple outbound sales specialist inaccuracies despite chart review. 05/10/2025 Other This chart has been transcribed by a computerized dictation system. There are likely to be multiple outbound sales specialist inaccuracies despite chart review. PLAN OF TREATMENT Pending Test Test Name Order Date GUAIAC, SINGLE SPECIMEN 06/06/2025 DIAGNOSTIC ANOSCOPY 06/06/2025 LP+Non-HDL [id number] 07/02/2025 Hepatic Function Panel [id number] 2024 Comp. Metabolic Panel [id number] 2024 [id number] 07/02/2025 Next Appt Details Provider Name:FanyBaldemar macias, 10/02/2025 02:45:00 PM, [address] [facility], [place], [address], Insurance Providers Payer Name Payer Address Payer Phone Subscriber Number Group Number Insured Name Patient Relationship to Insured Coverage Start Date Coverage End Date LYDIA ([facility] [id number] [place] [address] [id number] Tristan Laurel Self - patient is the insured MEDICAL (GENERAL) HISTORY Medical History History ICD Code Status post mitral valve replacement Z95 .2 Congestive heart failure, unspecified I5 0.9 Paroxysmal a-fib I48.0 COPD, moderate J44.9 Mixed hyperlipidemia E78.2 Surgical History Surgery Date(Month/Year) Mitral Valve Replacement with CABG x1 Appendix 08/2017
== END 2025-09-18 15:11 | disposition home or self-care (01) ==
PROVIDERS: PCP Internal Medicine; Visit Provider Nurse Practitioner Family
DX: N81.6 Rectocele (principal); K64.4 Residual hemorrhoidal skin tags; Z53.20 Procedure and treatment not carried out because of patient's decision for unspecified reasons
CPT/HCPCS: 99214

== ENCOUNTER → 2025-09-18 14:14 | Outpatient (BNVA) | payer OTHER, SELFPAY | PROVIDERS: PCP Internal Medicine; Visit Provider Nurse Practitioner Family | DX: N81.6 Rectocele (principal); K64.4 Residual hemorrhoidal skin tags; K92.1 Melena | CPT/HCPCS: 99212 ==